=== PATIENT | female | born 1995 | race Caucasian/White ===

== ENCOUNTER 2021-06-10 10:12 | Outpatient (REF) | payer OTHER, SELFPAY ==
[2021-06-10 10:59] LABS: MANUAL DIFF FLAG NO
[2021-06-10 11:04] LABS: Basophils Percent Auto 0.6 % (0-2); Eosinophils Percent Auto 0.6 % (0-4); Hematocrit 42.8 % (37.0-47.0); Hemoglobin 14.3 g/dl (12.0-16.0); Imm Gran Abs Auto 0.02 X10*3/uL (0.00-0.03); Imm Gran Pct Auto 0.3 % (0.0-0.4); Lymphocytes Absolute Auto 1.1 X10*3/uL (1.2-4.9); Lymphocytes Percent Auto 15.5 % (20-40); Mean Corpuscular HGB Conc 33.4 g/dl (31.0-35.0); Mean Corpuscular Hemoglobin 29.3 pg (27.0-33.0); Mean Corpuscular Volume 87.7 fL (80.0-98.0); Mean Platelet Volume 9.3 fL (9.4-12.3); Monocytes Absolute Auto 0.5 X10*3/uL (0.1-1.2); Monocytes Percent Auto 6.9 % (2-11); Neutrophils Absolute Auto 5.3 x10*3/uL (2.0-8.3); Neutrophils Percent Auto 76.1 % (45-73); Platelet Count 253 X10*3/uL (160-400); Red Blood Count 4.88 X10*6/uL (4.20-5.50)
[2021-06-10 11:39] LABS: Alanine Aminotransferase 20 U/L (0-31); Albumin Level 4.6 g/dL (3.5-5.0); Alkaline Phosphatase 75 U/L (39-117); Anion Gap 13 (12-20); Aspartate Amino Transferase 19 U/L (5-31); Bilirubin Total 0.7 mg/dL (0.0-1.0); Blood Urea Nitrogen 16 mg/dL (9-16); Calcium 9.7 mg/dL (8.4-10.2); Carbon Dioxide 26 mmol/L (22-29); Chloride 101 mmol/L (96-108); Cholesterol 186 mg/dL; Estimated Glomerular Filt Rate 60; Glucose Fasting 88 mg/dL (60-99); HDL Cholesterol 72 mg/dL; LDL Cholesterol Calculated 96 mg/dl; Potassium 4.8 mmol/L (3.3-5.1); Sodium 135 mmol/L (135-145); Total Protein 7.7 g/dL (6.5-8.0); Triglycerides 90 mg/dL
[2021-06-10 12:01] LABS: Syphilis Screen Nonreactive (Nonreactive)
[2021-06-10 12:02] LABS: TSH reflex Free T4 1.28 uIU/mL (0.32-4.0)
[2021-06-11 10:09] LABS: HBc Num1 0.11 S/CO (0.00-0.79); Hepatitis B Core Antibody Nonreactive (Nonreactive); ~HepC Num1 0.13 S/CO (0.00-0.79); ~Hepatitis B Surface Antibody NONREACTIVE (Nonreactive); ~Hepatitis C Antibody Nonreactive (Nonreactive)
[2021-06-11 10:32] LABS: HBsAGNum1 0.11 S/CO (0.00-0.99); HIV AB/AG Nonreactive (Nonreactive); Hepatitis B Surface Antigen Negative (Negative)
[2021-06-12 20:01] LABS: Follicle Stimulating Hormone 10.1 mIU/mL
== END 2021-06-10 10:13 | disposition home or self-care (01) ==
LOC: HO.WFDLDS 10:12
PROVIDERS: Visit Provider Family Medicine
DX: Z00.00 Encounter for general adult medical examination without abnormal findings (principal); N92.6 Irregular menstruation, unspecified; Z11.3 Encounter for screening for infections with a predominantly sexual mode of transmission; Z11.8 Encounter for screening for other infectious and parasitic diseases; Z11.4 Encounter for screening for human immunodeficiency virus [HIV]; Z11.59 Encounter for screening for other viral diseases; Z13.220 Encounter for screening for lipoid disorders; Z13.29 Encounter for screening for other suspected endocrine disorder
CPT/HCPCS: 36415; 80053; 80061; 83001; 83002; 84443; 85025; 86704; 86706; 86780; 86803; 87340; 87389

== ENCOUNTER 2021-12-30 09:17 | Outpatient (REF) | payer BC, SELFPAY ==
[2021-12-30 10:55] LABS: Hematocrit 34.1 % (37.0-47.0); Hemoglobin 11.6 g/dl (12.0-16.0); Mean Corpuscular Hemoglobin 30.1 pg (27.0-33.0); Mean Corpuscular Volume 88.6 fL (80.0-98.0); Mean Platelet Volume 9.3 fL (9.4-12.3); Platelet Count 215 X10*3/uL (160-400); Red Blood Count 3.85 X10*6/uL (4.20-5.50); Red Cell Distribution Width 13.2 % (11.0-16.0); White Blood Count 13.5 X10*3/uL (4.8-10.8)
[2021-12-30 11:06] LABS: Anion Gap 10 (12-20); Blood Urea Nitrogen 7 mg/dL (9-16); Calcium 8.7 mg/dL (8.4-10.2); Carbon Dioxide 25 mmol/L (22-29); Chloride 103 mmol/L (96-108); Estimated Glomerular Filt Rate > 60; Glucose Random 107 mg/dL (60-115); Potassium 3.7 mmol/L (3.3-5.1); Sodium 134 mmol/L (135-145)
[2021-12-30 12:08] LABS: Influenza A PCR NEGATIVE (Negative); Influenza B PCR NEGATIVE (Negative); Resp Syncy Virus RNA Qual PCR NEGATIVE (Negative); SARS COV2 PCR INHOUSE NEGATIVE (Negative)
== END 2021-12-30 09:18 | disposition home or self-care (01) ==
LOC: HO.WFDLDS 09:17
PROVIDERS: Visit Provider Hospitalist
DX: Z20.822 Contact with and (suspected) exposure to COVID-19 (principal); R50.9 Fever, unspecified; R06.00 Dyspnea, unspecified; R11.10 Vomiting, unspecified; R82.90 Unspecified abnormal findings in urine; Z87.440 Personal history of urinary (tract) infections
CPT/HCPCS: 0241U; 80048; 85027; 87086; 87088; 87186

== ENCOUNTER 2023-08-08 09:04 | Outpatient (AMB) | payer BC, SELFPAY ==
--- NOTE | 2023-08-08 09:09 | A.OFFPC_ITS ---
Vital Signs 08/08/23 09:11 Height 5 ft 4 in Weight 182 lb BMI 31.2 BP 118/68 Blood Pressure Location Lt brachial Position Sitting Pulse 67 Pulse Source Pulse Oximeter Pulse Oximetry (%) 100 Oxygen Delivery Method Room Air Intake Visit Reasons: CPE with f/u labs and health maintenance Intake Note: Patient is here for her physical. Allergies No Known Allergies Allergy (Verified 08/08/23 09:12) Tobacco use date assessed: 08/08/23 Dental Screening Dental Screen Date: 08/08/23 Did you have a dental visit in the last 12 months?: Yes Did you have a dental problem in the last 6 months where you did not have access to dental care?: No Was dental information given to patient?: Patient has dentist HPI CPE with f/u labs and health maintenance HPI Details 27 y/o female presents for a CPE with f/ u labs and health maintenance. No recent labs to review. She reports she uses a peloton for exercise. She states she is up to date on her pap smears. [facility] Social History Housing: House Alcohol intake: current Alcohol intake frequency: holidays/special occasions only Patient Tobacco Use Status: Never used Tobacco e-Cigarette/Vaping Use: Never Used Second Hand Smoke Exposure: No service: No Current occupational status: employed Cognitive needs: No Hearing needs: No Vision needs: No Questionnaire PHQ-9 Over the last 2 weeks, how often have you been bothered by any of the following problems? 1. Little interest or pleasure in doing things: not at all 2. Feeling down, depressed, or hopeless: not at all 3. Trouble falling or staying asleep, or sleeping too much: not at all 4. Feeling tired or having little energy: not at all 5. Poor appetite or overeating: not at all 6. Feeling bad about yourself - or that you are a failure or have let yourself or your family down: not at all 7. Trouble concentrating on things, such as reading the newspaper or watching television: not at all 8. Moving or speaking so slowly that other people could have noticed. Or the opposite - being so fidgety or restless that you have been moving around a lot more than usual: not at all 9. Thoughts that you would be better off or of hurting yourself in some way: not at all Total score: 0 Source: Developed by Drs. Abiodun Roach, Negrito Mancuso and colleagues, with an educational ivan from [employer]. Thrive Questionnaire Date Thrive assessed: 08/04/21 I am a: Patient What is your living situation today?: I have a steady place to live Within the past 12 months, did the food you bought not last and you didn't have the money to get more?: Often true Within the past 12 months, did you worry whether your food would run out before you got money to buy more?: Often true Do you have trouble paying for medicines?: No Do you have trouble getting transportation to medical appointments?: No Do you have trouble paying your heating and electricity bill?: No Do you have trouble taking care of your child, family member or friend?: No Do you have trouble with day-to-day activities such as bathing, preparing meals, shopping, managing finances, etc.?: No Are you currently unemployed and looking for a job?: No Are you interested in more education?: No THRIVE Score: 2 AUDIT C Alcohol Use Questionnaire (AUDIT-C) 1. How often do you have a drink containing alcohol?: Never 3. How often do you have six or more drinks on one occasion?: Never Total Score: 0 LEANDRA-7 AMB Questionnaire LEANDRA-7 Date LEANDRA - 7 assessed: 08/08/23 Feeling nervous, anxious, or on edge: 0 = Not at all Not being able to stop or control worryin = Not at all Worrying too much about different things: 0 = Not at all Trouble relaxin = Not at all Being so restless that it is hard to sit still: 0 = Not at all Becoming easily annoyed or irritable: 0 = Not at all Feeling afraid as if something awful might happen: 0 = Not at all Total LEANDRA-7 score (0-4 normal; 5-9 mild; 10-14 moderate; 15-21 severe): 0 Source: Developed by Funmi Luciano Kurt Kroenke and colleagues, with an educational ivan from [employer]. Review of Systems Const Denies chills, Denies fatigue, Denies fever(s), Denies headache(s) and Denies weakness Eyes Denies change in vision ENT Denies dizziness, Denies headache(s), Denies hearing loss, Denies nasal congestion, Denies sinus pain, Denies sinus pressure and Denies sore throat Card Denies chest pain, Denies lightheadedness, Denies dyspnea and Denies other (palpitations) Resp Denies cough, Denies dyspnea and Denies wheezing GI Denies abdominal pain, Denies melena, Denies hematochezia, Denies change in bowel habits, Denies dyspepsia and Denies nausea Denies hematuria and Denies dysuria Musc Denies abnormal gait, Denies myalgias, Denies arthralgias, Denies numbness and Denies tingling Skin/Breast Denies rash, Denies unusual bruising and Denies wounds Neuro Denies abnormal gait, Denies dizziness, Denies headache(s), Denies memory loss, Denies numbness, Denies Sensory deficit (Neuro), Denies tingling and Denies weakness Psych Denies anxiety, Denies depression and Denies memory loss Endo Denies cold intolerance, Denies fatigue, Denies heat intolerance, Denies polydipsia and Denies polyuria Rocky/Lymph Denies easy bleeding and Denies easy bruising Aller/Immun Denies wheezing Physical exam (Primary Care) Vital Signs: Last Vital Signs Pulse 67 08/08/23 09:11 BP 118/68 08/08/23 09:11 Pulse Ox 100 08/08/23 09:11 Oxygen Delivery Method Room Air 08/08/23 09:11 BMI result Body Mass Index 31.2 Tobacco/Smoking Status: Tobacco use Status Tobacco use date assessed 08/08/23 08/08/23 09:17 Patient Tobacco Use Status Never used Tobacco 08/08/23 09:11 e-Cigarette/Vaping Use Never Used 08/08/23 09:11 PHQ-9: PHQ-9 Score PHQ-9: Total score 0 08/08/23 09:22 Thrive Assessment: Date of Thrive Assessment Date Thrive assessed 08/04/21 08/08/23 09:11 Const General: no acute distress, well developed, alert and awake Nutritional Appearance: well nourished Orientation/consciousness: patient oriented x3 HENMT Head: Yes normocephalic and Yes atraumatic Ears: hearing grossly normal bilaterally and TM's normal bilaterally General nose exam: Normal external nose present and Normal nares present Mouth: Normal oral and palatal mucosa present and moist mucous membranes Teeth and gingiva: dentition normal Throat: Yes posterior oropharynx normal Eyes General: appearance normal, both eyes and all related structures Pupils: Equal, round and reactive pupils present and Pupil accommodation reflex normal EOM: EOMs intact bilaterally Neck Neck: Yes normal visual inspection, Yes no lymphadenopathy and Yes trachea midline Thyroid: Thyroid normal Carotids: no bruits Lymphatic: no lymphadenopathy noted Chest Chest palpation & inspection: normal inspection of the chest Resp Effort & Inspection: normal respiratory effort Auscultation: clear to auscultation bilaterally Cardio Rate: regular rate Rhythm: regular rhythm Heart sounds: S1 normal heart sound present, S2 normal heart sound present, no gallops, no murmurs and no rubs Bruits: no abdominal aortic bruits and no carotid bruits GI Palpation (GI): No Abdominal aortic bruit present, Soft to palpation, nontender, No hepatosplenomegaly present and No Rebound tenderness present Auscultation: normal bowel sounds General: Yes no CVA tenderness Back/Spine/Pelvis Back: no CVA tenderness Cervical Spine: cervical ROM normal and No Cervical spine tenderness Thoracic/Lumbar Spine: thoraco-lumbar ROM normal, No pain with thoraco-lumbar ROM, No thoracic spinal tenderness and No lumbar spinal tenderness Skin Lesions: no lesions Rashes: no rashes Trauma: no lacerations or abrasions Wounds: no wounds Nails: normal Neuro General: patient oriented x3 Cranial nerves: Yes Equal, round and reactive pupils present Cognition (Neuro): normal cognition Gait exam (Neuro): Normal gait present Motor exam (neuro): 5/5 motor strength present throughout Sensory Exam: No Sensory deficit (Neuro) Deep tendon reflexes (DTR's): Right patellar reflex intensity grade: 2+ and Left patellar reflex intensity grade: 2+ Extrem General: Yes normal to inspection and No edema Psych Appearance: grossly normal Affect: normal affect Attitude: cooperative Thought process: Normal thought process present Assessment and Plan Assessment & Plan (1) Adult general medical examination: Code(s): Z00.00 - Encounter for general adult medical examination without abnormal findings Plan: 27-year-old?female?presents?for?complete?physical?exam Exam?within?normal?limits Encouraged?healthy?diet?with?active?lifestyle?and?plenty?of?exercise (2) Screening for cervical cancer: Code(s): Z12.4 - Encounter for screening for malignant neoplasm of cervix Plan: Followed?by?manager corporate responsibility?at[facility] Has?upcoming?appointment Up-to-date Orders: Orders Comprehensive [place]. Panel Fast Today Z00.00 - Encounter for general adult medical examination without abnormal findings Complete Blood Count Auto Diff Today Z00.00 - Encounter for general adult medical examination without abnormal findings Lipid Panel Today Z00.00 - Encounter for general adult medical examination without abnormal findings Microalbumin, Random (w Creat) Today I10 - Essential (primary) hypertension TSH reflex Free T4 Today Z00.00 - Encounter for general adult medical examination without abnormal findings UA and rflx microscopic Today Z00.00 - Encounter for general adult medical examination without abnormal findings Coding Level of Care Code Est Pt Level 3 (81015) Est Pt Prev Care 18-39y(48292) Diagnoses Adult general medical examination Z00.00 Screening for cervical cancer Z12.4
[2023-08-08 09:11] VITALS: BP 118/68; PULSE 67; O2SAT 100; BMI 31.2
== END 2023-08-08 09:53 | disposition home or self-care (01) ==
PROVIDERS: Visit Provider Family Medicine
DX: Z00.00 Encounter for general adult medical examination without abnormal findings (principal); Z12.4 Encounter for screening for malignant neoplasm of cervix
CPT/HCPCS: 99395

== ENCOUNTER 2023-08-08 09:51 | Outpatient (REF) | payer BC, SELFPAY ==
[2023-08-08 11:49] LABS: MANUAL DIFF FLAG NO
[2023-08-08 12:05] LABS: Basophils Absolute Auto 0.1 X10*3/uL (0.0-0.2); Basophils Percent Auto 1.1 % (0-2); Eosinophils Absolute Auto 0.1 X10*3/uL (0.0-0.4); Eosinophils Percent Auto 2.4 % (0-4); Hematocrit 40.8 % (37.0-47.0); Hemoglobin 13.3 g/dl (12.0-16.0); Imm Gran Abs Auto 0.01 X10*3/uL (0.00-0.03); Imm Gran Pct Auto 0.2 % (0.0-0.4); Lymphocytes Absolute Auto 1.5 X10*3/uL (1.2-4.9); Lymphocytes Percent Auto 28.1 % (20-40); Mean Corpuscular HGB Conc 32.6 g/dl (31.0-35.0); Mean Corpuscular Hemoglobin 28.7 pg (27.0-33.0); Mean Corpuscular Volume 88.1 fL (80.0-98.0); Mean Platelet Volume 9.2 fL (9.4-12.3); Monocytes Absolute Auto 0.5 X10*3/uL (0.1-1.2); Monocytes Percent Auto 8.3 % (2-11); Neutrophils Absolute Auto 3.3 x10*3/uL (2.0-8.3); Neutrophils Percent Auto 59.9 % (45-73); Platelet Count 332 X10*3/uL (160-400); Red Blood Count 4.63 X10*6/uL (4.20-5.50); White Blood Count 5.5 X10*3/uL (4.8-10.8)
[2023-08-08 12:47] LABS: Alanine Aminotransferase 9 U/L (0-31); Albumin Level 4.3 g/dL (3.5-5.0); Alkaline Phosphatase 112 U/L (39-117); Anion Gap 9 (12-20); Aspartate Amino Transferase 12 U/L (5-31); Bilirubin Total 0.4 mg/dL (0.0-1.0); Blood Urea Nitrogen 13 mg/dL (9-16); Calcium 9.4 mg/dL (8.4-10.2); Carbon Dioxide 28 mmol/L (22-29); Chloride 104 mmol/L (96-108); Cholesterol 175 mg/dL (<200); Estimated Glomerular Filt Rate > 60; Glucose Fasting 79 mg/dL (60-99); HDL Cholesterol 48 mg/dL (>40); LDL Cholesterol Calculated 109 mg/dL (<100); Potassium 4.4 mmol/L (3.3-5.1); Sodium 137 mmol/L (135-145); Total Protein 7.6 g/dL (6.5-8.0); Triglycerides 93 mg/dL (<150)
[2023-08-08 14:20] LABS: Appearance Urine Clear; Color Urine Yellow; Glucose Urine UA Negative (Negative); Leukocyte Esterase Urine Negative (Negative); Nitrite Urine Negative (Negative); PH 7.5 (5.0-9.0); Specific Gravity - Urine <= 1.005 (1.005-1.025); UMIC TRIGGER UA YES; Urine Blood Moderate (2+) (Negative); Urine Ketones Negative (Negative); Urine Protein Negative (Neg-Trace)
[2023-08-08 14:31] LABS: Bacteria Urine None Seen (None Seen); Hyaline Casts Urine 0-2 /LPF (0-2); RBC Urine 0-2 /HPF (0-2); Squamous Epithelial Cell Urine 0-2 /HPF (0-2); WBC Urine 0-5 /HPF (0-5)
[2023-08-08 16:13] LABS: Creatinine Urine 46.39 mg/dL; Microalbumin Urine < 5.0 mg/L
== END 2023-08-08 09:52 | disposition home or self-care (01) ==
LOC: HO.WFDLDS 09:51
PROVIDERS: Visit Provider Family Medicine
DX: Z00.00 Encounter for general adult medical examination without abnormal findings (principal); I10 Essential (primary) hypertension
CPT/HCPCS: 36415; 80053; 80061; 81001; 82043; 82570; 84443; 85025

== ENCOUNTER 2023-09-06 15:50 | Outpatient (AMB) | payer BC, SELFPAY ==
--- NOTE | 2023-09-06 15:47 | A.OFFPC_ITS ---
Intake Visit Reasons: f/u CPE-labs Intake Note: Patient is following up on labs today. Allergies No Known Allergies Allergy (Verified 09/06/23 15:48) Tobacco use date assessed: 09/06/23 HPI f/u CPE-labs HPI Details 27 y/o female presents to f/u CPE-labs v ia telemedicine. Labs were drawn 08/08/23. Reviewed labs with pt. Anemia improved. Triglycerides 93. TC 175. LDL 109. HDL 48. PFSH Social History Housing: House Alcohol intake: current Alcohol intake frequency: holidays/special occasions only Patient Tobacco Use Status: Never used Tobacco e-Cigarette/Vaping Use: Never Used Second Hand Smoke Exposure: No service: No Current occupational status: employed Cognitive needs: No Hearing needs: No Vision needs: No Questionnaire Thrive Questionnaire Date Thrive assessed: 08/04/21 LEANDRA-7 AMB Questionnaire LEANDRA-7 Date LEANDRA - 7 assessed: 08/08/23 Source: Developed by Drs. Abiodun Roach, Funmi Soler, Negrito Gray and colleagues, with an educational ivan from [employer]. Review of Systems Const Denies chills, Denies fatigue, Denies fever(s), Denies headache(s) and Denies weakness ENT Denies dizziness and Denies headache(s) Card Denies dyspnea Resp Denies cough, Denies dyspnea, Denies wheezing and Denies other (shortness of breath) Musc Denies numbness and Denies tingling Neuro Denies dizziness, Denies headache(s), Denies numbness, Denies tingling and Denies weakness Psych Denies anxiety and Denies depression Endo Denies fatigue Aller/Immun Denies wheezing Physical exam (Primary Care) Tobacco/Smoking Status: Tobacco use Status Tobacco use date assessed 09/06/23 09/06/23 15:49 Patient Tobacco Use Status Never used Tobacco 09/06/23 15:49 e-Cigarette/Vaping Use Never Used 09/06/23 15:49 Thrive Assessment: Date of Thrive Assessment Date Thrive assessed 08/04/21 09/06/23 15:49 Telehealth Telehealth Location of provider rendering services: practice address Location of patient: address on file Patient Identification confirmed using: Name, : Yes Telehealth method: voice only Patient verbally consented to treatment: Yes Patient verbally consented to billing insurance company: Yes Patient informed of any privacy concerns related to visit: Yes Minutes spent on Phone/Video with Pt.: 5 Assessment and Plan Assessment & Plan (1) Anemia: Code(s): D64.9 - Anemia, unspecified Plan: Resolved Orders: Orders Comprehensive [place]. Panel Fast 9 Months Z00.00 - Encounter for general adult medical examination without abnormal findings Complete Blood Count Auto Diff 9 Months Z00.00 - Encounter for general adult medical examination without abnormal findings TSH reflex Free T4 9 Months Z00.00 - Encounter for general adult medical examination without abnormal findings Microalbumin, Random (w Creat) 9 Months I10 - Essential (primary) hypertension Lipid Panel 9 Months Z00.00 - Encounter for general adult medical examination without abnormal findings UA and rflx microscopic 9 Months Z00.00 - Encounter for general adult medical examination without abnormal findings Vitamin D 25-OH Total 9 Months E55.9 - Vitamin D deficiency, unspecified Coding Level of Care Code Tele Est Pt Level 2 (91697) Diagnoses Anemia D64.9
--- OUTSIDE RECORDS SUMMARY | 2023-09-06 15:52 | XMS_ITS | Continuity of Care Document ---
Author Name Unknown Organization [facility] Address [address] [place] [address]- Care Team Providers Care Purchase Analyst Name Role Phone Shantelle Dukes DO Primary Care Physician [phone] Encounter [facility] Date(s): 12/23/21 - 01/22/22 [facility] [address] [place] [id number] Attending Physician: Soraida Perez Admitting Physician: Soraida Perez Referring Physician: Soraida Perez
--- OUTSIDE RECORDS SUMMARY | 2023-09-06 15:52 | XMS_ITS | Continuity of Care Document ---
Author Name Unknown Organization [facility] ter Address [address] [place] [id number]- Care Team Providers Care Mounting Inspector Name Role Phone Shantelle Dukes DO Primary Care Physician [phone] [facility] Date(s): 07/01/22 - 07/04/[address] [address] Discharge Disposition: A-D/C Home Attending Physician: Alexa Ruggiero MD Admitting Physician: Alexa Ruggiero MD Referring Physician: Alexa Ruggiero MD Allergies, Adverse Reactions, Alerts No Known Medication Allergies Medications aspirin 81 mg oral delayed release tablet 162 mg, 2, tablet, By Mouth, Daily, # 30 tablet, Refills 5, Maintenance, 07/01/22 13:45:00 EST, Partial fill upon patient request if the prescription is for a schedule II opioid drug. Start Date: 07/01/22 Status: Ordered Problem List Condition Confirmation Course Effective Dates Status Health St atus Informant Obese class I Confirmed Active Procedures Procedure Date Related Diagnosis Body Site Status delivery only; 07/02/22 C ompleted Vital Signs Most recent to oldest [Reference Range]: 1 2 3 Height 162 cm (07/04/22 8:33 AM) 162 cm (07/04/22 12:50 AM) 162 cm (07/03/22 4:11 PM) Weight 86 kg (07/01/22 1:17 PM) Oxygen Saturation [94-100 %] 96 % (07/04/22 8:33 AM) 96 % (07/04/22 12:50 AM) 100 % (07/03/22 4:11 PM) Pulse Rate [55-90 bpm] 69 bpm (07/04/22 8:33 AM) 80 bpm (07/04/22 12:50 AM) 91 bpm *H* (07/03/22 4:11 PM) Body Mass Index [18.5-24.99 kg/m2] 32.77 kg/m2 *>HHI* (07/01/22 1:17 PM) Blood Pressure [90-138/55-84 mm Hg] 110/64mm Hg (07/04/22 8:33 AM) 118/68mm Hg (07/04/22 12:50 AM) 127/71mm Hg (07/03/22 4:11 PM) Respiratory Rate [16-30 br/min] 18 br/min (07/04/22 8:33 AM) 18 br/min (07/04/22 12:50 AM) 18 br/min (07/03/22 4:11 PM) Temperature [96.8-100.4 DegF] 97.7 DegF (07/04/22 8:33 AM) 98.2 DegF (07/04/22 12:50 AM) 98.8 DegF (07/03/22 4:11 PM) Mode of Delivery (Oxygen) Room air (07/04/22 8:33 AM) Room air (07/04/22 12:50 AM) Room air (07/03/22 12:36 AM) Blood pressure sites Arm, left (07/04/22 8:33 AM) Arm, left (07/04/22 12:50 AM) Arm, right (07/03/22 12:36 AM) Temperature Route Oral (07/04/22 8:33 AM) Oral (07/04/22 12:50 AM) Oral (07/03/22 4:11 PM) Dry Weight 86 kg (07/01/22 1:17 PM) History and physical note * Qi Fowler CNM: PERFORM Event Display: History and Physical Hospital Authored Date: [id number] Patient: ??WHITE, DEO ? Age:??26 Years?Sex:??Female?:??1995?? OB Reason for Admission OB Reason for Admission?? No qualifying data available. LMP/EGA/FABRICE Gestational Age (EGA) and FABRICE? * Note: EGA calculated as of 07/01/2022 ?? FABRICE:??07/01/2022?EGA*:??40 weeks ? History?(0,0,0,0)?Method:??Last Menstrual Period??(10/04/2021) History of Present Illness pt here for nst for 6/8 bpp in office. pt had deceleration while in wetu. pt denies any past medical issues. reports taking baby aspirin in for covid in early . pt takes pnv.?? pt was 1cm in office today. pt agrees to cervical ripening and iol for bpp 6/10 and variable decels. Review of Systems ros all negative except as above Physical Exam ?? General: ??Within normal limits.? Cardiovascular: ??Within normal limits. ? Cardiovascular Assessment: Heart Rhythm ( Regular ), Heart Sounds ( S1, S2 ). ?? Abdomen/GI: ??Within normal limits,? Abdomen Description: Gravid, Non-tender. ?? Respiratory: ??Within normal limits, Respiratory pattern, Breath Sounds All Lobes. ?? Musculoskeletal: ??Within normal limits. ?? Extremities: ??Within normal limits, Extremities, [id number]. ? Edema: Upper Extremities, Lower Extremities.? OB Assessment Non Stress Test ?? Baby:??A Heart Rate: Rate _120 bpm Variability:??Moderate Acceleration:??Present Deceleration:??Variable Contractions:??irregular ?? Comments: _ Assessment/Plan a-s=d ? category II tracing, bpp 6/10 off for nst with variables, and no breathing movements on bpp ? iol for nonreassuring testing at term p-admit to ldrp ? plan for cervical ripening and iol ? cbc, type and screen start iv ? see orders ? anticipate ? discussed with dr vogt ? addendum: after initial H&P done, called back to room for variable that was not recovering with repositioning.?? leah rocio called and patient transported to pacu. ob team met us in room and report given. OB History History?(0,0,0,0)?No previous pregnancies history have been recorded Labs Labs Labs & Tests Antibody Screen: Negative (03/15/22) Blood Type: A Negative (11/26/21) Chlamydia Trachomatis Amplified Probe: NEGATIVE (06/03/22) Glucose 50 Gm, +60 Minutes: 100 mg/dL (03/15/22) Hct: 36.3 % (03/15/22) Hepatitis B Surface Antigen: NEGATIVE (11/26/21) Hepatitis C Ab: NEGATIVE (11/26/21) Hgb: 12 Gm/dL (03/15/22) HIV 4th Generation Ab-Ag Result: NEGATIVE (11/26/21) RPR Titer Result: NOT INDICATED (03/15/22) Rubella IgG Ab: POSITIVE (11/26/21) Syphilis Screen by BG: NEGATIVE (03/15/22) Urine Culture: Urine Culture (11/26/21) Problem List Active Active Problem List : (Obstetric) (10/04/21) Procedure/Surgical History No qualifying data available. Home Medications No qualifying data available. Allergies No active allergies Family History No family history recorded. Plan OB Plan Circumcision Plan: None (07/01/22) Feeding Plan: Breast milk (07/01/22) * Julia Bloom DO: PERFORM Event Display: History and Physical Hospital Authored Date: [id number] Met patient in PACU. FHR tracing is reassuring with a normal baseline and spontaneous accelerations. We discussed that if the FHR tracing continues to be non-reassuring, we may need to proceed towards section. We discussed the risks of bleeding (she accepts blood products), infection, and damage to surrounding structures. She understands and accepts the risks and a consent was signed forCesarean section. * Mackenzie FALL, Annette Pandya: PERFORM Event Display: History and Physical Hospital Authored Date: [id number] Patient brought to PACU and FHT recovered with good variability and patient brought to LDRP room. Hospital Progress note * Manuela Hanna LPN: PERFORM, SIGN, VERIFY Event Display: Progress Note Hospital Authored Date: [id number] Patient: DEO ZEE Age: 26 years Sex: Female : 1995 Associated Diagnoses: None Author: Manuela Hanna LPN Findings Mother and baby discharged home with her baby via ambulation, declined wheelchair. Discharge instructions reviewed and written copy given. Reviewed discharge medications and given times of next doses. Mother has an appointment for 1week for stitch removal. Tank Car Repairer appointment Tuesday 11:00.All q uestions answered. * Ling Fall RN: PERFORM, SIGN, VERIFY Event Display: Progress Note Hospital Authored Date: [id number] Patient: DEO ZEE Age: 26 years Sex: Female : 1995 Associated Diagnoses: None Author: Ling Fall RN Patient independent with self and infant cares. Voiding and passing flatus without complication. Pain well controlled with Tylenol, Ibuprofen. Safe sleep educated to both parents. Positive bonding noted. See CIS for full assessment. All questions answered. Call light within reach. Findings Problem Related to Alteration in Comfort : Alteration in Comfort/new 07/03/2022 21:00 EST Alteration in Comfort Related to Surgery, Other: s/p c/s Goals & Outcomes: Comfort Pt will report acceptable level of comfort & pain control, Pt will state importance of adhering to pain strategy regime, Pt will demonstrate necessary skills to manage pain Interventions Implemented: Comfort Assess pain using appropriate pain scale/tools, Assess aggravating factors & prevent them accordingly, Assess alleviating factors & promote them accordingly BH Goals/Interventions, Comfort Yes Comfort, Problem Start 07/02/2022 23:24 Reviewed plan with, Comfort Patient, Spouse/significant other Patient Progression, Comfort Pt progressing according to plan Comfort, Problem Ongoing Yes . * Sunshine Aldrich RN: PERFORM, SIGN, VERIFY Event Display: Progress Note Hospital Authored Date: [id number] Patient: DEO ZEE Age: 26 years Sex: Female : 1995 Associated Diagnoses: None Author: Elinor PAINTING, Sunshine Rangel OB stable. OOB ad marilu. Voiding without difficulty. Rhogam given. baby well. FOB with pt and supportive Note * Manuela Hanna LPN: PERFORM Event Display: Discharge/Transfer Note Hospital Authored Date: [id number] Nursing Discharge Note Entered On: 07/04/2022 11:51 EST Performed On: 07/04/2022 11:50 EST by Manuela Hanna LPN Nursing Discharge Note 2 Discharge Time : 07/04/2022 11:50 EST Discharge Level of Care at Discharge : Home/Senior Living/Foster Care Avionics Systems Integration Specialist Utilized : No AMA Form Signed : No Patient Left Unit Via : Ambulatory Patient Accompanied Off Unit with : Significant other DC Instructions Provided & Signed by Pt : Yes Patient Understands D/C Instructions : Yes Verbalized Understanding of D/C Plan By : Patient Patient Instructions Discharge Signed : Yes Did Pt have Specialty Bed or Wound Vac : No Manuela Hanna LPN - 07/04/2022 11:50 EST * Julio Clark MD: PERFORM, SIGN, VERIFY Event Display: Discharge/Transfer Note Hospital Authored Date: [id number] Patient: DEO ZEE Age: 26 years Sex: Female : 1995 Associated Diagnoses: None Author: Julio Clark MD Discharge Information Delivery Summary Maternal Information Labor Information Baby A Labor Onset Methods: Induced Induction Methods: Cervical Sánchez Inpatient, Misoprostol, Pitocin Delivery Information Gestational Age at Delivery: 40W 1D Anesthesia OB: Epidural 07/02/22 00:03:27 Blood Loss - Quantitative: 1676 mL Baby A Delivery Information Delivery Type: , low transverse Reason for : Nonreassuring status Priority: Code TANNER Date, Time of : 07/02/22 05:34:00 Delayed Cord Clamping: No Placenta Delivery Date/Time: 07/02/22 05:35:00 Placenta Delivery Method: Expressed Placenta Appearance: Normal Placenta to Pathology: No Care Team Time NICU Team Called: 07/02/22 05:25:00 Labor Information ROM Date, Time: 07/02/22 00:32:00 monitoring: External monitor Information Outcome: Live Weight: 3.363 kg Score 1 minute: 0 Score 5 minute: 8 Score 10 minute: 9 Transferred To: Care area with Family Umbilical Cord Description: 3 vessel cord Complications: None Gender: Male Condition of patient on discharge: Discharge condition: Good. Status:: Exclusive . Contraception: None. Final Diagnoses:: Active Problems (2) Obese class I . Instructions for continuing care:: Follow Up with: [facility] [phone] In 1 week 07/11/2022. Restrictions on diet: Regular. Restrictions on activity: Ad Marilu. * Manuela Hanna LPN: PERFORM Event Display: Patient Education/Instruction Authored Date: [id number] Inpatient Adult Discharge Instructions [address] [address] Name: DEO ZEE : 1995 Visit: 07/01/2022 01:12:00 Current Date: 07/04/2022 11:02 Account: [id number] Inpatient Adult Discharge Instructions We would like to thank you for allowing us to assist you with your healthcare needs. The following includes patient education materials and information regarding your injury/illness. Our entire staffstrives to provide an excellent experience for our patients and their families. PLEASE ENSURE YOU FOLLOW-UP PER THE INSTRUCTIONS BELOW! ?? YOUR OPINION IS IMPORTANT TO US! Please complete the survey you may receive by mail or email. Your feedback will be used to make improvements to the healthcare experiences of our patients and their families. Surveys are administered by [employer] ?? If further treatment with your primary care physician or another doctor is recommended, it is important for you to keep the appointment. Call your primary care physician or return to the Emergency Department immediately if your condition worsens, fails to improve, or new symptoms develop. If you need to find a doctor, you can call [facility] [facility] for a referral at [phone] or toll free at [phone] ([phone]) or log in to [email or web address].. ?? You can view and manage your care through the patient portal or by using a health care andrea of your choosing. [employer] is a website that allows you to securely view your medical information including your hospital discharge summary, office visit summaries, medications and follow-up visits. You can also request appointments, renew medications, and request access to your medical information using a health care andrea of your choosing, or just ask a question. You can enroll at [email or web address] or register during your next office visit. You have been discharged from [facility], Patient Care Unit: WIN2. If you have any questions regarding these instructions after you leave, please call us and we will be happy to assist you. [facility] Your Care Team Attending Physician Bahman FALL, Alexa Consulting Providers Manuel FALL, Carolina Rangel Discharging Providers Eduardo FALL, Julio Obando Reason for Admission Induction of labor, Nonreassuring status Your Diagnosis Encounter for induction of labor Tests Performed Below is a partial list of the tests performed during your hospitalization. You may have had other tests and procedures not included in this list. Please discuss all test results with your provider. COMPLETE BLOOD COUNT Cord Blood Gas Type and Screen Primary Care Provider Shantelle Dukes DO Advance Directive Health Care Proxy on File Yes - Health Care Proxy No qualifying data available. Discharge Vitals Temperature: 97.7 DegF Height: 162 cm Pulse Rate: 69 bpm Weight: 86 kg Respiratory Rate: 18 br/min Body Mass Index:??32.77 kg/m2??Critical Systolic Blood Pressure: 110 mm Hg Body surface area: 1.97 Diastolic Blood Pressure: 64 mm Hg ?? Oxygen Saturation: 96 % ?? Studies Pending All tests and labs ordered during this hospital stay have been completed unless listed below. Please discuss all pending results with your provider listed above in these instructions. ?? COVID-19 (2019 Novel Coronavirus) PCR Hold Lavender Tube (BB) (Hold Lavender Tube (BB), ) What to do next Instructions From Your Doctor Discharge Orders You Need to Schedule the Following Appointments Follow Up with??[facility] [phone] When??In 1 week 07/11/2022 EST Discharge Medications DEO ZEE :1995 Visit Date:07/01/2022 Medications: Please continue your medications until treatment is completed or stopped by your provider. Medications not listed below should be discontinued. Discuss any questions related to medications with your provider. What How Much When Instructions Next Dose Unchanged Aspirin (aspirin 81 mg oral delayed release tablet) 2 tab(s) Oral Daily Test Results Below is a partial list of the most recent Laboratory test results done prior to this discharge. You may have had other tests and procedures not included in this list. Please discuss all test resultswith your provider. Bleed Screening - Negative (07/02/2022) RHIG Available - PT (07/02/2022) RHIG Candidacy Screen - Patient is a candidate for RhIG. Place order (07/02/2022) RHIG LOT # - [id number] (07/02/2022) COMPLETE BLOOD COUNT (07/02/2022) ???WBC - 18.6 k/mm3???RBC - 3.25 m/mm3???Hgb - 10.2 Gm/dL???Hct - 30.8 %???MCV - 94.8 femtoliters???MCH - 31.4 pg???MCHC - 33.1 g/dL???Platelet Count - 183 k/mm3???RDW-SD - 43.8 femtoliters???MPV - 9.7 femtoliters???Nucleated RBC (Automated) - 0.0 #/100 WBC'S???Abs. NRBC - 0.0 k/mm3 Cord Blood Gas (07/02/2022) ? ?pH - 7.15? ?pCO2 - 62 mm Hg? ?pO2 - <20.0 mm Hg? ?Bicarbonate, Estimated - 21 mmol/L? ?Specimen Type - Blood Gas - ARTERIAL Type and Screen (07/01/2022) ???Blood Type - A Negative???Antibody Screen - Negative Allergies (NKA means No Known Allergies) No Known Medication Allergies Problems Active Problems??(2) Obese class I? Education Materials Below is the list of Educational Leaflet Providered with your Discharge Instructions. OB PP Post Warning Signs?? OB PP [facility]- Discharge Instructions?? Valuables and Belongings I fully understand and agree that [facility] accepts no responsibility for all my personal property including clothing, toilet articles, radios, jewelry, dentures, hearing aids, rings, money, or any other property that is in my possession or is brought to me after admission. I understand certain valuables may be placed in a hospital safe for a short period of time. I understand that the hospital is not liable for loss or damage due to accident, fire, or other natural occurrence while said property is in the safe. I accept full responsibility for any personal property that I keep with me, and will not hold the hospital responsible in case of loss or disappearance. I acknowledge that i have been encouraged to send valuables and belongings home. ?? No Valuables/Belongings: No valuables/belongings present Date for Pt to Sign Valuables/Belongings: 07/01/22 13:47:00 ?? Other Discharge Information ? Pulmonary Rehab Status?? Pulmonary Rehab Discharge Status?? Respiratory Rate: 18 br/min ? Common Emergency Awareness Tips IS IT A STROKE? Act FAST and Check for these signs: FACE Does the face look uneven? ARM Does one arm drift down? SPEECH Does their speech sound strange? TIME Call at any sign of stroke ?? Heart Attack Signs Chest discomfort: Most heart attacks involve discomfort in the center of the chest and lasts more than a few minutes, or goes away and comes back. It can feel like uncomfortable pressure, squeezing, fullness or pain. Discomfort in upper body: Symptoms can include pain or discomfort in one or both arms, back, neck, jaw or stomach. Shortness of breath: With or without discomfort. Other signs: Breaking out in a cold sweat, nausea, or lightheaded. Remember, MINUTES DO MATTER. If you experience any of these heart attack warning signs, call to get immediate medical attention! ?? Smoking can increase your chances of developing chronic health problems and can cause harmful effects to other family members in your house. If you smoke, you are strongly encouraged to quit. Please call [facility] at [phone] or 2-695-[facility] ([phone]) or log in to [email or web address] for referrals to smoking cessation programs. ?? The National Suicide Prevention Hotline is available 07/02 if you or someone you know needs to find a reason to keep living. By calling 7-121-636-Droid system master (1427) you'll be connected to a skilled, trained counselor at a crisis center in your area. INPATIENT DISCHARGE INSTRUCTIONS SIGNATURE PAGE DEO ZEE Location:[facility] Registration Date and Time:07/01/2022 01:12 [facility] Primary Care Physician: Shantelle Dukes DO, I DEO ZEE, have received the above patient education materials/instructions and have verbalized understanding. If ambulance or transport services are being used I further acknowledge being given a choice of service. ?? If you need to contact me, please call me at this number: . Patient/Cnc Programmer Name: Patient/Cnc Programmer Signature: Relationship to Patient: Witness Name/Signature: Date: * Julio Clark MD C: PERFORM, SIGN, VERIFY Event Display: Patient Education Handout Authored Date: [id number] * Manuela Hanna LPN: PERFORM Event Display: Patient Education Leaflets Authored Date: [id number] OB PP Post Warning Signs ?? 221 SAVE YOUR LIFE Get Care for These POST- Warning signs ?? Most women who give recover without problems. But any woman can have complications after the of a baby. Learning to recognize these POST- warning signs and knowing what to do can save your life. ?? Call 911 if you have: ??? Pain in chest ??? Obstructed breathing or shortness of breath ??? Seizures ??? Thoughts of hurting yourself or your baby ?? Call healthcare provider if you have: ??? Bleeding, soaking through one pad/hour, or blood clots, the size of an egg or bigger ??? I ncision that is not healing ??? Red or swollen leg, that is painful or warm to touch ??? Temperature of 100.40??F or higher ??? Headache that does not get better, even after taking medicine, or bad headache with vision changes ?? If you can???t reach your healthcare provider, call 911 or go to an emergency room ? Tell 911 or your healthcare provider ???I had a baby on and ?(Date) I am having ?? . ? (Specific warning signs) ? These post- warning signs can become life-threatening if you don???t receive medical care right away because: ??? Pain in chest, obstructed breathing or shortness of breath (trouble catching your breath) may mean you have a blood clot in your lung or a heart problem ??? Seizures may mean you have a conditioncalled eclampsia ??? Thoughts or feelings of wanting to hurt yourself or your baby may mean you have depression ??? Bleeding (heavy) , soaking more than one pad in an hour or passing an egg- sized clot or bigger may mean you have an obstetric hemorrhage ??? Incision that is not healing, increased redness or any pus from episiotomy or site may mean you have an infection ??? Redness, swelling, warmth, or pain in the calf area of your leg may mean you have a blood clot ??? Temperature of 100.40??F or higher, bad smelling vaginal blood or discharge may mean you have an infection ??? Headache (very painful), vision changes, or pain in the upper right area of your belly may mean you have high blood pressure or post preeclampsia ?? GET HELP My Healthcare Provider/Clinic: Phone Number Hospital Closest To Me: ? * Manuela Hanna LPN: PERFORM Event Display: Patient Education Leaflets Authored Date: OB PP [facility]- Discharge Instructions ?? 209 Discharge Care Instructions for the New Mom and Baby Please take a few moments to read through these helpful instructions before you leave the hospital.?? Your nurse will be glad to answer any questions you may have.?? You can also find this and more information throughout the purple Becoming a Family booklet, [facility]???s New Beginnings Guide and the Consultation Services Guide given to you after the of your baby.?? You may also phone our nurses stations if you have further questions.?? [facility]:?? First Floor ([phone]), Second Floor ([phone]).?? Please call your provider if you have any questions or concerns?? before your next appointment. For ongoing support please ???Like?? us on our Facebook page ???[facility]?? andsign up for our email newsletter at [email or web address].?? News and information will besent to you until your baby???s third birthday. Instructions for the New Mother Activity: For the next 2 weeks at home ??? no heavy lifting, avoid unnecessary stair climbing, and no driving(especially if you are taking medicine that may make you sleepy or feel that you are sleep deprived).?? For the next 4-6 weeks - no tampons, no douches, no sexual intercourse. Use your franco bottle to rinse your perineum until your vaginal flow stops.?? If you have stitches in your bottom, they generally dissolve within 7-10 days.?? Apply Tucks/witch john pads until your soreness subsides.?? Use your bathroom at home every 3 to 4 hours, rinse, and change your pads. Warm showers feel great on achy muscles, sore backs and sore bottoms. Exercise: Walking is the best form of exercise.?? Wait until your follow up appointment with your provider in4-6 weeks before engaging in more strenuous activity. Diet: Drink plenty of fluids to avoid constipation and to help support your recovery. Eat plenty of iron rich foods such as red meat, iron fortified cereals like Total and Cream of Wheat, raisins, prunes, greens and spinach.?? These will help to build your blood count back up as all women lose some blood after delivery.?? Also add foods rich in Vitamin C such as strawberries, oranges, papayas, kale and razo peppers. Continue to take your vitamins if you are .?? If you are not follow the instructions of your provider.?? If you were prescribed iron supplements such as ferrous sulfate, it is important to continue these until your doctor or corner cutter machine operator tells you to stop. Breast Care for Nursing Mothers: Wear a comfortable fitting, supportive nursing bra.?? An underwire bra is not recommended. Express drops of breast milk and rub over your nipples and areola (brown area) before and after each feeding to protect and heal sensitive skin and then air dry your nipples.?? If you are experiencing any soreness, you may purchase nipple cream such as TenderCare or Lansinoh.?? Use it in the following manner:?? finish your feeding or pumping session, self-express colostrum onto your nipple and air dry, apply the nipple cream to the nipple and areola.?? Use only small amounts for best results. If you are having difficulty getting the baby to latch onto the breast due to swelling of the areola, try applying pressure with your fingers for a couple of minutes above and below your nipple and walk your fingers outward softening the area and pushing the swelling away.?? This technique is knownas reverse pressure softening.?? For demonstrations of this and other techniques such as the Greenleaf Hand Expression technique, please refer to the resources section of the Consultation Services Guide that you received from services. When your milk first comes in, usually within 3 to 5 days after delivery, you may experience engorgement.?? Your breasts may become swollen and very tender.?? Cold compresses work great to help with discomfort and reduce swelling. It will get better in a couple of days.?? Continue to nurse your baby frequently.?? Call [facility]???s Consultation Service at [phone], press 1 to schedule an outpatient appointment or press 3 and a life consultant will return your call that day or the next if you call after 3pm. Breast Care for Bottle Feeding Mothers: Engorgement may occur within the first week after delivery.?? Your breasts may become hard and verytender.?? A cool compress of cleaned raw green cabbage leaves applied to the breast and changed as leaves wilt has been proven helpful for many women.?? Ice packs or frozen bags of peas also work nicely to ease the discomfort.?? The soreness will only last a couple of days. Keep your back turned to the water while showering to decrease breast stimulation. Wear a snug fitting bra such as a sports bra. Incision Care Following Tubal or Section: You may shower as directed by your doctor or corner cutter machine operator.?? Pat your incision dry with a clean towel.??You will not need a bandage after the first day. Call your doctor or corner cutter machine operator with any signs of infection such as a hard, hot swollen tender incision, especially if the skin around the incision looks pink or red.?? Yellow drainage with an odor may also be a sign of infection to report. Call your doctor or corner cutter machine operator if the incision begins to separate. If you have steri-strips on the incision, they will likely fall off in the first week.?? If they have not fallen off by 10 days after delivery, you may remove them. Control: Your doctor or corner cutter machine operator will discuss control methods with you [facility] at your checkup.?? Be sure to let your provider know if you are . You had a Paragard IUD placed on .?? This control method is effective for 10 years. You had a Liletta placed on .?? This control method is effective for up to 5 years. You had a Nexplanon placed on .?? This control method is effective for up to 3 years. You received a Depo Provera injection on .?? This control method is effective as longas you repeat it every 3 months.?? Schedule your next dose before . You have a prescription for control pills .?? It is important to take a pill everyday at around the same time of day for effective control protection.?? Pain Management: Cramping after is common and increases in strength with each baby you have.?? If you experience painful cramps, and have no allergies to acetaminophen (Tylenol) or ibuprofen (Motrin), you may continue to take these medications as you did in the hospital.?? Ibuprofen is also helpful with back aches following epidurals, perineal pain following a vaginal delivery, and moderate incisional pain after a section or a tubal ligation.?? If you experience gas distention, especially after surgery, you may take an over the counter medication called simethicone.?? Take these chewable tablets 4 times a day as needed and directed on the package.?? Keep moving.?? Walking or rocking in a chair, will help to move the gas along.?? Richard tea made with heated richard khoa (instead of water) and a tea bag, stirred to dissolve carbonation (bubbles) is a helpful drink to soothe a gassy stomach. Warning Signs of a Problem to Notify Your Doctor or Mechanical Manufacturing Engineer of: Heavy vaginal bleeding ??? which is soaking a pad every hour with bright red blood. Passing blood clots the size of an egg or larger. An incision that is not healing. A temperature greater than or equal to 100.4 especially if accompanied by any of the following symptoms ??? painful, frequent urination; extreme back or flank pain; lower belly pain with a foul smellto your vaginal flow; a red hard hot area on your breast.?? Severe headache that does not go away after taking acetaminophen or ibuprofen.?? A headache that changes your vision, including seeing spots or blurring. Right sided upper abdominal pain along the rib cage area. Pain in your legs that is warm and tender to the touch. depression signs may include ??? loss of interest in your baby, weepiness, difficulty focusing, weight loss with no appetite, exhaustion, feeling overwhelmed or anxious, feelings of despair, or thoughts of harming yourself or your baby.?? These symptoms are important and should be discussed with your doctor or corner cutter machine operator. depression may develop over a period of time and needs prompt medical attention.?? Do not suffer in silence.?? In both the Becoming a Family booklet and [facility] Guide there is a screening tool used to identify women at risk, called the [place] Scale which you have taken in the office prior to delivery and again during your hospital s patricia.?? Three to four weeks after your delivery, and before your check with your provider, take this test and share your results with your provider.?? Be sure to mention any score of 10 or more.?? Many women, and even some partners, may experience the ???baby blues?? .?? This is a state of feeling overwhelmed and weepy.?? Discomfort from childbirth, hormonal changes, exhaustion, changes to your body and lifestyle are a few of the things that contribute to the highs and lows new parents go through.?? Don???t be afraid to ask your partner or family and friends for some help at home so you can get some rest and a few minutes to yourself.?? The blues will quickly pass. Personal Safety: Every person has the right to feel safe at home and live free from physical or emotional harm.?? Ifyou have suffered mental or physical abuse at home, you are not alone.?? There is help.?? Please call HOTLINE or the [employer] at [phone]. CARE Bathing: Give your baby a sponge bath until the cord falls off in about 1-3 weeks.?? It is not necessary to bathe your baby every day, usually every few days is sufficient. ??Keep the cord area dry.?? Some baby girls will have a small bloody vaginal discharge. No need to worry as this is normal. It is not necessary to use lotions on the baby???s skin.?? Powders and oils are not recommended.?? Babies often get rash on their skin which comes and goes quickly and does not require any special care.?? Diaper rash can be treated with a zinc oxide preparation such as Desitin or Balmex diaper cream. Circumcision Care: Your nurse will teach you how to care for your baby???s circumcision depending on the type of circumcision your doctor or corner cutter machine operator performed.?? Most circumcisions require A&& ointment for about 4-5 days.?? Be generous with the amount of A&& used as this will prevent the diaper from sticking when you go to change it. If a plastibell circumcision was done, the plastic ring around the penis will fall off in a week orso. Diapers: After the 1st??few days, the baby will start wetting more often.?? A breast fed baby will wet about6-8 times a day once mom???s milk comes in ??? usually day 4 or 5.?? This is a good sign that the baby is getting plenty to eat.?? You may notice an orangey-pink stain in the diaper which is normal for the first few days. The baby???s first bowel movements are sticky, black and tarry.?? As the baby starts to feed more often over the next couple of days, the stool will change to a seedy yellowish green color and eventually a loose mustard like stool for a breast fed baby and a more formed yellow stool for a bottle fed baby. your Baby: ??Congratulations on deciding to breastfeed your baby! You are providing your baby with the most nourishing food source on the planet, your breast milk.?? Cues such as rooting, suckling, licking and fussing may be telling you that your baby is ready to eat ??? and it is time to offer your breasts. The first weeks following the are a time for you and your baby to learn.?? The baby may be sleepy the first day after with 8 to 12 attempts ??? including 2 to 4 good feedings.?? Over the next couple of days the baby will become more wakeful, feed 8 to 12 times a day and have more wet and poopy diapers.?? Cluster feeding, especially during the evening/night time, is normal. ?? Listen for swallowing sounds and watch the baby as they become more relaxed at the breast ??? both good signs that the baby is getting a good amount of milk.?? Refrain from smoking or eating edible marijuana while you are . Even though marijuana is legal in the state of [place],??it is harmful for your baby.??It stays in breast milk for along period of time and THC can be found in the baby's urine for up to 3 weeks. Second hand smoke can also increase the risk??of Sudden Infant Syndrome / SIDS. ?? Nursing is wonderful but many moms and babies have some degree of difficulty with at first. Don???t give up!?? There are many resources available to help you overcome these temporary problems. Your volunteer services assistant wants to hear from you if you are having difficulties and can offermany helpful suggestions.?? Some offices have consultants on staff. [facility]???s Consultation Service is available 7 days a week, 8am to 3pm at [phone].?? Press 1 to schedule an outpatient appointment.?? Press 3 to leave a message for the events solutions consultant, a life consultant will return your call that day or the next if you call after 3pm. Support Groups ??? [facility] offers free gatherings for moms and babies weekly.?? All groups meet at the [facility]???s 2nd??floor, typically in the [facility] Conference Room, Tuesday???s 1 to 2 pm.?? [employer] is a worldwide organization with local community support, mother to mother support.?? Information can be found at https://www.lllusa.org Formula Feeding your Baby: Formula fed babies should eat every 3 to 4 hours.?? Look for cues that your baby is ready ??? such as rooting and sucking, licking and fussing.?? At the baby???s stomach is small and may take 10-15ml of formula.?? Over the next few days the baby will become more wakeful and feed more frequently, gradually increasing the amounts of formula taken at a feeding.?? Your volunteer services assistant will provideinstructions on how to increase the amount.?? Refer to packaging for formula preparation directions, depending on the type of formula you purchase ??? powder, concentrate or ready to feed. Safety: ALWAYS REMEMBER - BACK TO SLEEP! Babies sleep safest on their backs.?? Every sleep.?? Every time.?? Every nap. Babies need a firm sleep surface with a tight fitting bottom sheet.?? NO loose bedding.?? NO pillows.?? NO bumper pads or rolls.?? NO heavy or fluffy blankets. NO stuffed toys. It is not safe for your baby to sleep in your bed, in a chair, or on a sofa.?? Your baby should notsleep with you or anyone else. Car Seat: Always place your baby in a rear facing car seat in the backseat of the car. Car seat inserts that come with the car seat can be used as they are crash tested with the seat.?? You should not buy additional inserts.?? Dress the baby in a weather appropriate outfit.?? Avoid bulky clothing such as snowsuits or jackets as the baby may squirm in the seat, loosening the shoulder straps and come out of the top of the harness if you need to brake hard or are in an accident.?? Once the baby issecured in the seat you can cover your little one with a blanket if needed.?? If your baby was bornprematurely, follow the directions given to you.?? If you have not already done so, check to make sure your car seat is installed correctly. Check with your local Fire and Police Department to see if they offer car seat inspections at a location close to you. Babies Can Move: ?? Never leave your baby unattended on any surface, raised or flat, or while bathing.?? They can squirm, fall or hurt themselves.?? Always fasten the safety belt when using an infantseat or swing ??? as they may lean forward and fall. Good Handwashing is the number one way you can protect the baby from too?? many germs and prevent infection.?? When family and friends visit ask that they wash their hands before holding your baby.??Also avoid crowds the first month of your baby???s life to protect from colds and flus. Shaking a baby out of frustration can cause severe and lasting damage, even to a baby.?? If you feel you are becoming angry or overwhelmed, place the baby in a safe place and walk away.?? Call a friend or family member.?? If they are not able to offer immediate help call the Parental Stress Hotline at?? , an anonymous 07/02 source of help. Warning Signs to notify your volunteer services assistant of: Most babies develop a small amount of jaundice (a yellowish skin color) in the face and upper chest, by about 3 days of age.?? If the yellow color extends below the baby???s belly or if the baby is very sleepy and not feeding well, call your volunteer services assistant. A rectal temperature of 100.4F as it could be a sign of infection. Projectile vomiting that continues with each feeding could indicate reflux or a problem with the formula. Extreme sleepiness or very fussy. Cold symptoms with nasal stuffiness, especially if the baby is having difficulty feeding. Constipation with hard stools. Blue or dusky color, call 911. If Your Baby Needs to Remain in the Hospital: Please leave your baby???s ID bracelets on if your baby needs to remain in the hospital after you are discharged home. The phone number to NICU is [phone]. The phone number to [facility] is [phone]. The phone number to [place] [facility] is [phone]. moms should pump every 2-3 hours or 8-12 times in 24 hours.?? If unable to place the baby to breast, if you are having difficulty getting the baby to latch on, or if the baby remains inthe hospital after you are discharged ??? bring the pumped milk to the hospital, labeled with name,date and time.?? Carry it in a small cooler or diaper bag with an ice pack and bring it the next time you visit your baby.?? Consultation Services is available if you need to rent or purchase a pump or products.?? Call and leave a message at [phone] ??? press 3 and a life consultant will return your call that day or the next if you call after 3pm. ? * Kim Torres: PERFORM Event Display: Care Team Progress Note Authored Date: [id number] Patient: ??WHITE, DEO ? Age:??26 Years?Sex:??Female?:??1995?? Subjective cart rounds day??1 assessment for assistance Patient??has no??previous experience Feeding sheet??is adequately filled out Patient??has obtained personal pump Assessment/Plan Patient has been feeding frequently and noted that breasts are sore and the right nipple has been bleeding Noted a possible obstruction in the newborns mouth When suck training, noted the tongue does move with the appropriate rhythm but does not extend far. ?? Patient can easily express colostrum ?? Helped position in the football position and was able to help him deeply latch and patient noted a strong tug with no pinch ?? After baby self released, noted the nipple was stimulated and round in shape ?? Discussed: Nipple care ?? Basic education discussed with mother/family including:? Positioning for optimal feeding Asymmetric latch technique Frequent breast stimulation for initiation and maintenance of milk supply Engorgement prevention and management (page 12 guide) How to know your baby is getting enough (page 14 guide) Hand expression When to use a breast pump Consultation reference guide given to mother with contact information for services and ongoing support as needed.? OB Summary : 1 . Baby A - Weight: 3.363 kg Baby A - Date, Time of : 07/02/22 05:34:00 Baby A - Gender: Male Baby A - Complications: Meconium stained fluid EGA at Documented Date, Time: 40W 1D Weight at Delivery Baby A - Delivery Type: , low transverse OB History History?(0,0,0,0)?No previous pregnancies history have been recorded Active Problem List Active Problem List Obese class I: (Medical) : (Obstetric) (10/04/21) Home Medications Aspirin: 162 mg = 2 tablet, By Mouth, Daily Medications Medications (14) Active SCHEDULED: (3) Acetaminophen 325 mg Tablet (Acetaminophen Tablet) ??650 mg, By Mouth, Every 4 hours Docusate Sodium 100 mg Capsule (Docusate Sodium Capsule) ??100 mg 1 capsule, By Mouth, 2 times a day Ibuprofen 800 mg Tablet (Ibuprofen Tablet) ??800 mg, By Mouth, Every 8 hours CONTINUOUS: (2) Lactated Ringers (1000 mL) Cont IV 1,000 mL (Lactated Ringers 1,000 mL) ??1,000 mL, IV Infusion, 125 mL/hr Lactated Ringers (1000 mL) Cont IV 1,000 mL (Lactated Ringers 1,000 mL) ??1,000 mL, IV Infusion, 125 mL/hr PRN: (9) Acetaminophen 325 mg Tablet (Acetaminophen Tablet) ??650 mg, By Mouth, Once diphenhydrAMINE 50 mg/mL Inj (DiphenhydrAMINE Inj) ??25 mg 0.5 mL, IV Push, Once FENTanyl 50 mcg/mL Inj (2 mL) (FENTanyl Inj) ??25 mcg 0.5 mL, IV Push, Every 5 minutes Metoclopramide 5 mg/mL Inj (2 mL) (Metoclopramide Inj) ??10 mg, IV Push, Every 6 hours nalOXONE ??400mcg/mL Inj (nalOXONE Inj) ??0.1 mg 0.25 mL, IV Push Slowly, Every 15 minutes Ondansetron 2mg/mL Inj (2mL Vial) (Ondansetron Inj) ??4 mg, IV Push, Once OxyCODONE 5 mg IR Tablet (OxyCODONE IR Tablet) ??5 mg, By Mouth, Every 3 hours OxyCODONE 5 mg IR Tablet (OxyCODONE IR Tablet) ??10 mg, By Mouth, Once Simethicone 80 mg Chewable Tablet (Simethicone Tablet) ??80 mg, Chew, 3 times a day Patient Care team information Care Team Personnel Name: Shantelle Dukes DO Position: [facility] General Pediatrics MD Member Role: PCP Address: Address: [address] [place] [address] [place] [address]- Name: Kim Vides RN Position: [facility] OB RN Member Role: Patient Care Provider Care Team Related Persons Name: GÓMEZ GOEL Address: [address] [place] [address] Name: DEO ZEE Address: [place] Address: [address] [place] [address] [place] Name: LIZZ ZEE Address: [address] [place] [address]
--- OUTSIDE RECORDS SUMMARY | 2023-09-06 15:52 | XMS_ITS | Continuity of Care Document ---
Author Name Unknown Organization [facility] Address [address] [place] [id number]- Care Team Providers Care Permastone Mechanic Name Role Phone Shantelle Dukes DO Primary Care Physician [phone] Encounter [facility] Date(s): 12/09/21 - 01/08/22 [facility] [address] [place] [id number]
--- OUTSIDE RECORDS SUMMARY | 2023-09-06 15:52 | XMS_ITS | Continuity of Care Document ---
Author Name Unknown Organization [facility] Address [address] [place] [id number]- Care Team Providers Care It Coordinator Name Role Phone Shantelle Dukes DO Primary Care Physician Encounter [facility] Date(s): 06/23/22 - 08/07/[address] [address]- Attending Physician: Alexa Ruggiero MD Referring Physician: Alexa [...] atus Informant Obese class I Confirmed Active Patient Care team information Care Team Personnel Name: Shantelle Dukes DO Position: S General Pediatrics MD Member Role: PCP Address: Address: [address] [place] [address] [facility] [place], [place] [address] Care Team Related Persons Name: LISA GOEL Address: [place] Address: home [address] [place], [place] Address: temporary 0 Name: GÓMEZ GOEL Address: home [address] [place], [place] Name: LIZZ ZEE Address: [address] [place] [address]
== END 2023-09-08 15:43 | disposition home or self-care (01) ==
PROVIDERS: PCP Family Medicine; Visit Provider Family Medicine
DX: D64.9 Anemia, unspecified (principal)
CPT/HCPCS: 99441

== ENCOUNTER 2024-08-21 08:56 | Outpatient (AMB) | payer BC, SELFPAY ==
--- NOTE | 2024-08-21 08:58 | MHC.PC.OV ---
Vital Signs 08/21/24 09:02 Height 5 ft 4 in Weight 180 lb 8 oz BMI 31.0 BP 126/65 Blood Pressure Location Rt brachial Position Sitting Respiration 16 Pulse 66 Pulse Source Pulse Oximeter Temp 97.4 F Temp Source Oral Pulse Oximetry (%) 100 Oxygen Delivery Method Room Air Intake Visit Reasons: CPE with f/u labs and health maint. 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 HPI Details 28 y/o female presents for a CPE with f/u labs and health maintenance. No recent labs to review. Reports some chest discomfort while trying to sleep. Denies any symptoms of sleep apnea. Does have some anxiety. HPI Comments History of Present Illness Details Documentation assistance for Quinn Keene MD, was provided by Lawson Galvez, Bilingual Call Center Representative on 08/21/2024 at 9:13 AM ANGI. I, Dr. Keene, have read, observed, and verified documentation. ?? [facility] Social History Housing: House Alcohol intake: current Alcohol intake frequency: holidays/special occasions only Patient Tobacco Use Status: Never used Tobacco e-Cigarette/Vaping Use: Never Used Second Hand Smoke Exposure: No service: No Current occupational status: employed Cognitive needs: No Hearing needs: No Vision needs: No Female Reproductive History Menstrual Date of last menstrual period: 07/30/24 Questionnaire PHQ-9 Over the last 2 weeks, how often have you been bothered by any of the following problems? 1. Little interest or pleasure in doing things: not at all 2. Feeling down, depressed, or hopeless: not at all 3. Trouble falling or staying asleep, or sleeping too much: not at all 4. Feeling tired or having little energy: not at all 5. Poor appetite or overeating: not at all 6. Feeling bad about yourself - or that you are a failure or have let yourself or your family down: not at all 7. Trouble concentrating on things, such as reading the newspaper or watching television: not at all 8. Moving or speaking so slowly that other people could have noticed. Or the opposite - being so fidgety or restless that you have been moving around a lot more than usual: not at all 9. Thoughts that you would be better off or of hurting yourself in some way: not at all Total score: 0 Depression Screening Interpretation: Negative Depression Screening Done: Yes 55471 - PHQ-9 Billing: Yes Source: Developed by Drs. Abiodun Roach, Funmi Soler, Negrito Gray and colleagues, with an educational ivan from [employer] Thrive Questionnaire Date Thrive assessed: 08/21/24 I am a: Patient What is your living situation today?: I have a steady place to live Within the past 12 months, did the food you bought not last and you didn't have the money to get more?: Never true Within the past 12 months, did you worry whether your food would run out before you got money to buy more?: Never true Do you have trouble paying for medicines?: No Do you have trouble getting transportation to medical appointments?: No Do you have trouble paying your heating and electricity bill?: No Do you have trouble taking care of your child, family member or friend?: No Do you have trouble with day-to-day activities such as bathing, preparing meals, shopping, managing finances, etc.?: No Are you currently unemployed and looking for a job?: No Are you interested in more education?: No Please select the resources that you would like help with: None Currently or been in a relationship where the following occur: No concerns reported THRIVE Score: 0 AUDIT C Alcohol Use Questionnaire (AUDIT-C) 1. How often do you have a drink containing alcohol?: Monthly or less 2. How many drinks containing alcohol do you have on a typical day when you are drinking?: 1 or 2 3. How often do you have six or more drinks on one occasion?: Never Total Score: 1 LEANDRA-7 AMB Questionnaire LEANDRA-7 Date LEANDRA - 7 assessed: 08/21/24 Feeling nervous, anxious, or on edge: 1 = Several days Not being able to stop or control worryin = Several days Worrying too much about different things: 0 = Not at all Trouble relaxin = Not at all Being so restless that it is hard to sit still: 0 = Not at all Becoming easily annoyed or irritable: 0 = Not at all Feeling afraid as if something awful might happen: 1 = Several days Total LEANDRA-7 score (0-4 normal; 5-9 mild; 10-14 moderate; 15-21 severe): 3 Source: Developed by Drs. Abiodun Roach, Funmi Soler, Negrito Gray and colleagues, with an educational ivan from [employer] LEANDRA-7 Assessment Billing LEANDRA-7 Assessment Tool: LEANDRA-7 Assessment 13345 Review of Systems Const Denies chills, Denies fatigue, Denies fever(s), Denies headache(s) and Denies weakness Eyes Denies change in vision ENT Denies dizziness, Denies headache(s), Denies hearing loss, Denies nasal congestion, Denies sinus pain, Denies sinus pressure and Denies sore throat Card Denies chest pain, Denies lightheadedness, Denies dyspnea and Denies other (palpitations) Resp Denies cough, Denies dyspnea and Denies wheezing GI Denies abdominal pain, Denies melena, Denies hematochezia, Denies change in bowel habits, Denies dyspepsia and Denies nausea Denies hematuria and Denies dysuria Musc Denies abnormal gait, Denies myalgias, Denies arthralgias, Denies numbness and Denies tingling Skin/Breast Denies rash, Denies unusual bruising and Denies wounds Neuro Denies abnormal gait, Denies dizziness, Denies headache(s), Denies memory loss, Denies numbness, Denies Sensory deficit (Neuro), Denies tingling and Denies weakness Psych Denies anxiety, Denies depression and Denies memory loss Endo Denies cold intolerance, Denies fatigue, Denies heat intolerance, Denies polydipsia and Denies polyuria Rocky/Lymph Denies easy bleeding and Denies easy bruising Aller/Immun Denies wheezing Physical exam (Primary Care) Vital Signs: Last Vital Signs Temp 97.4 F 08/21/24 09:02 Pulse 66 08/21/24 09:02 Resp 16 08/21/24 09:02 BP 126/65 08/21/24 09:02 Pulse Ox 100 08/21/24 09:02 Oxygen Delivery Method Room Air 08/21/24 09:02 BMI result Body Mass Index 31.0 Tobacco/Smoking Status: Tobacco use Status Tobacco use date assessed 09/06/23 08/21/24 09:00 Patient Tobacco Use Status Never used Tobacco 08/21/24 09:00 e-Cigarette/Vaping Use Never Used 08/21/24 09:00 PHQ-9: PHQ-9 Score PHQ-9: Total score 0 08/21/24 09:00 Depression Screening Interpretation: Negative Thrive Assessment: Date of Thrive Assessment Date Thrive assessed 08/21/24 08/21/24 09:00 Currently or been in a relationship where the following occur: No concerns reported Const General: no acute distress, well developed, alert and awake Nutritional Appearance: well nourished Orientation/consciousness: patient oriented x3 HENMT Head: Yes normocephalic and Yes atraumatic Ears: hearing grossly normal bilaterally and TM's normal bilaterally General nose exam: Normal external nose present and Normal nares present Mouth: Normal oral and palatal mucosa present and moist mucous membranes Teeth and gingiva: dentition normal Throat: Yes posterior oropharynx normal Eyes General: appearance normal, both eyes and all related structures Pupils: Equal, round and reactive pupils present and Pupil accommodation reflex normal EOM: EOMs intact bilaterally Neck Neck: Yes normal visual inspection, Yes no lymphadenopathy and Yes trachea midline Thyroid: Thyroid normal Carotids: no bruits Lymphatic: no lymphadenopathy noted Chest Chest palpation & inspection: normal inspection of the chest Resp Effort & Inspection: normal respiratory effort Auscultation: clear to auscultation bilaterally Cardio Rate: regular rate Rhythm: regular rhythm Heart sounds: S1 normal heart sound present, S2 normal heart sound present, no gallops, no murmurs and no rubs Bruits: no abdominal aortic bruits and no carotid bruits GI Palpation (GI): No Abdominal aortic bruit present, Soft to palpation, nontender, No hepatosplenomegaly present and No Rebound tenderness present Auscultation: normal bowel sounds General: Yes no CVA tenderness Back/Spine/Pelvis Back: no CVA tenderness Cervical Spine: cervical ROM normal and No Cervical spine tenderness Thoracic/Lumbar Spine: thoraco-lumbar ROM normal, No pain with thoraco-lumbar ROM, No thoracic spinal tenderness and No lumbar spinal tenderness Skin Lesions: no lesions Rashes: no rashes Trauma: no lacerations or abrasions Wounds: no wounds Nails: normal Neuro General: patient oriented x3 Cranial nerves: Yes Equal, round and reactive pupils present Cognition (Neuro): normal cognition Gait exam (Neuro): Normal gait present Motor exam (neuro): 5/5 motor strength present throughout Sensory Exam: No Sensory deficit (Neuro) Deep tendon reflexes (DTR's): Right patellar reflex intensity grade: 2+ and Left patellar reflex intensity grade: 2+ Extrem General: Yes normal to inspection and No edema Psych Appearance: grossly normal Affect: normal affect Attitude: cooperative Thought process: Normal thought process present Coding Level of Care Code Est Pt Level 3 (57728) Est Pt Prev Care 18-39y(72368) Diagnoses Adult general medical examination Z00.00 Screening for cervical cancer Z12.4 Atypical chest pain R07.89 Additional Codes LEANDRA-7 Assessment Billing - LEANDRA-7 Assessment Tool: LEANDRA-7 Assessment 32184 ([id number]) PHQ-9 - 17669 - PHQ-9 Billing: Yes ([id number]) Assessment & Plan Assessment & Plan (1) Adult general medical examination: Code(s): Z00.00 - Encounter for general adult medical examination without abnormal findings Category: Medical Plan: 28-year-old?female?presents?for?complete?physical?exam Encouraged?healthy?diet?with?active?lifestyle?and?plenty?of?exercise (2) Screening for cervical cancer: Code(s): Z12.4 - Encounter for screening for malignant neoplasm of cervix Category: Medical Plan: She?had?been?a?patient?of?[facility]or?[facility]?which?has?closed She?is?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 (3) Atypical chest pain: Code(s): R07.89 - Other chest pain Category: Medical Plan: Nonexertional?chest?discomfort?which?she?notes?when?she?lies?on?left?side?before?falling?asleep This?has?not?happened?recently?though?patient?wanted?to?mentioned?it. She?does?not?snore?or?hold?her?breath?in?her?sleep?or?waking?gasping.? He?is?uncertain?if?this?is?related?to?food?or?reflux?but?says?she?is?no?longer?eating?close?to?bedtime?and?I?encouraged?this.??She?can?try?famotidine?if?symptoms?recur. Most?likely?this?is?secondary?to?stress/anxiety. Briefly?discussed?relaxation?techniques?and?decreased?stress.??Encouraged?her?to?sleep?in?another?position?rather?than?on?left Side.
[2024-08-21 09:02] VITALS: BP 126/65; PULSE 66; RESP 16; TEMP 36.3; O2SAT 100; BMI 31.0
== END 2024-08-21 09:23 | disposition home or self-care (01) ==
PROVIDERS: PCP Family Medicine; Visit Provider Family Medicine
DX: Z00.00 Encounter for general adult medical examination without abnormal findings (principal); R07.89 Other chest pain

== ENCOUNTER → 2024-08-21 08:56 | Outpatient (BNVA) | payer BC, SELFPAY | PROVIDERS: PCP Family Medicine; Visit Provider Family Medicine | DX: Z00.01 Encounter for general adult medical examination with abnormal findings (principal); R07.89 Other chest pain | CPT/HCPCS: 96127 ==

== ENCOUNTER 2024-08-21 09:33 | Outpatient (REF) | payer BC, SELFPAY ==
[2024-08-21 11:21] LABS: MANUAL DIFF FLAG NO
[2024-08-21 11:29] LABS: Appearance Urine Clear; Color Urine Yellow; Glucose Urine UA Negative (Negative); Leukocyte Esterase Urine Negative (Negative); Nitrite Urine Negative (Negative); Urine Blood Negative (Negative); Urine Ketones Negative (Negative); Urine Protein Negative (Neg-Trace)
[2024-08-21 11:39] LABS: Basophils Absolute Auto 0.1 X10*3/uL (0.0-0.2); Basophils Percent Auto 0.7 % (0-2); Eosinophils Absolute Auto 0.1 X10*3/uL (0.0-0.4); Eosinophils Percent Auto 1.4 % (0-4); Hematocrit 37.8 % (37.0-47.0); Hemoglobin 12.3 g/dl (12.0-16.0); Imm Gran Abs Auto 0.02 X10*3/uL (0.00-0.03); Imm Gran Pct Auto 0.3 % (0.0-0.4); Lymphocytes Absolute Auto 1.4 X10*3/uL (1.2-4.9); Lymphocytes Percent Auto 20.2 % (20-40); Mean Corpuscular HGB Conc 32.5 g/dl (31.0-35.0); Mean Corpuscular Hemoglobin 27.7 pg (27.0-33.0); Mean Corpuscular Volume 85.1 fL (80.0-98.0); Mean Platelet Volume 9.5 fL (9.4-12.3); Monocytes Absolute Auto 0.6 X10*3/uL (0.1-1.2); Monocytes Percent Auto 8.4 % (2-11); Neutrophils Absolute Auto 4.8 x10*3/uL (2.0-8.3); Platelet Count 250 X10*3/uL (160-400); Red Blood Count 4.44 X10*6/uL (4.20-5.50); Red Cell Distribution Width 13.7 % (11.0-16.0); White Blood Count 6.9 X10*3/uL (4.8-10.8)
[2024-08-21 12:05] LABS: Alanine Aminotransferase 16 U/L (0-31); Albumin Level 4.4 g/dL (3.5-5.0); Alkaline Phosphatase 56 U/L (39-117); Anion Gap 14 (12-20); Aspartate Amino Transferase 22 U/L (5-31); Bilirubin Total 0.7 mg/dL (0.0-1.0); Blood Urea Nitrogen 19 mg/dL (9-16); Carbon Dioxide 25 mmol/L (22-29); Chloride 104 mmol/L (96-108); Cholesterol 171 mg/dL (<200); Estimated Glomerular Filt Rate 57; Glucose Fasting 88 mg/dL (60-99); HDL Cholesterol 59 mg/dL (>40); LDL Cholesterol Calculated 96 mg/dL (<100); Sodium 139 mmol/L (135-145); Total Protein 7.4 g/dL (6.5-8.0); Triglycerides 80 mg/dL (<150)
[2024-08-21 12:20] LABS: TSH reflex Free T4 1.47 uIU/mL (0.32-4.0); Vitamin D 25-OH Total 27.8 ng/mL (>30)
[2024-08-21 12:29] LABS: Microalbumin Urine < 5.0 mg/L
== END 2024-08-21 09:34 | disposition home or self-care (01) ==
LOC: HO.WFDLDS 09:33
PROVIDERS: Visit Provider Family Medicine
DX: Z00.00 Encounter for general adult medical examination without abnormal findings (principal); E55.9 Vitamin D deficiency, unspecified; I10 Essential (primary) hypertension
CPT/HCPCS: 36415; 80053; 80061; 81003; 82043; 82306; 82570; 84443; 85025

== ENCOUNTER 2024-09-20 16:20 | Outpatient (AMB) | payer BC, SELFPAY ==
--- NOTE | 2024-09-20 16:18 | MHC.PC.OV ---
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 Labs drawn 08/21/24. Reviewed labs with pt. Triglycerides 80. TC 171. LDL 96. HDL 59. Vitamin D 27.8. HPI Comments History of Present Illness Details Documentation assistance for judit Keene MD, was provided by Lawson Galvez,? Plastic Outfitter on 09/20/2024 at 5:33 PM EST. I, Dr. Keene, have read, observed, and verified documentation. ?? [facility] Social History Housing: House Alcohol intake: current Alcohol intake frequency: holidays/special occasions only Patient Tobacco Use Status: Never used Tobacco e-Cigarette/Vaping Use: Never Used Second Hand Smoke Exposure: No service: No Current occupational status: employed Cognitive needs: No Hearing needs: No Vision needs: No Questionnaire Thrive Questionnaire Date Thrive assessed: 08/21/24 LEANDRA-7 AMB Questionnaire LEANDRA-7 Date LEANDRA - 7 assessed: 08/21/24 Source: Developed by Drs. Abiodun Roach, Funmi Soler, Negrito Gray and colleagues, with an educational ivan from [employer]. Review of Systems Const Denies chills, Denies fatigue, Denies fever(s), Denies headache(s) and Denies weakness ENT Denies dizziness and Denies headache(s) Card Denies dyspnea Resp Denies cough, Denies dyspnea, Denies wheezing and Denies other (shortness of breath) Musc Denies numbness and Denies tingling Neuro Denies dizziness, Denies headache(s), Denies numbness, Denies tingling and Denies weakness Psych Denies anxiety and Denies depression Endo Denies fatigue Aller/Immun Denies wheezing Physical exam (Primary Care) Tobacco/Smoking Status: Tobacco use Status Tobacco use date assessed 08/21/24 09/20/24 16:19 Patient Tobacco Use Status Never used Tobacco 09/20/24 16:19 e-Cigarette/Vaping Use Never Used 09/20/24 16:19 Thrive Assessment: Date of Thrive Assessment Date Thrive assessed 08/21/24 09/20/24 16:19 Telehealth Telehealth Telehealth Platform: Telephone Location of provider rendering services: practice address Location of patient: address on file Patient Identification confirmed using: Name, : Yes Telehealth method: voice only Patient verbally consented to treatment: Yes Patient verbally consented to billing insurance company: Yes Patient informed of any privacy concerns related to visit: Yes Minutes spent on Phone/Video with Pt.: 5 Coding Level of Care Code Tele Est Pt Level 2 (16446) Diagnoses Low vitamin D level R79.89 Incidental Z33.1 Assessment & Plan Assessment & Plan (1) Low vitamin D level: Code(s): R79.89 - Other specified abnormal findings of blood chemistry Category: Medical Plan: Mildly?low?vitamin-D?but?patient?is?now?on?a??vitamin Continue??vitamin (2) Incidental : Code(s): Z33.1 - state, incidental Category: Medical Plan: Patient?notes?that?she?recently?discovered?that?she?is?.??She?is?followed?by?parts remover Now?on??vitamins Follow-up?with?parts remover?as?recommended Orders: Orders Comprehensive [place]. Panel Fast 09/19/24 Z00.00 - Encounter for general adult medical examination without abnormal findings Complete Blood Count Auto Diff 09/19/24 Z00. - Encounter for general adult medical examination without abnormal findings Lipid Panel 09/19/24 Z00.00 - Encounter for general adult medical examination without abnormal findings Microalbumin, Random (w Creat) 09/19/24 I10 - Essential (primary) hypertension TSH reflex Free T4 09/19/24 Z00. - Encounter for general adult medical examination without abnormal findings UA and rflx microscopic 09/19/24 Z00.00 - Encounter for general adult medical examination without abnormal findings
== END 2024-09-20 17:05 | disposition home or self-care (01) ==
LOC: HO.HMCFM 16:20
PROVIDERS: PCP Family Medicine; Visit Provider Family Medicine
DX: R79.89 Other specified abnormal findings of blood chemistry (principal); Z33.1 Pregnant state, incidental